=== PATIENT | male | born 1955 ===

== ENCOUNTER 2017-03-07 17:26 | Emergency (ER) | payer MEDICAID ==
[2017-03-07] MEDS ORDERED: Lidocaine 1% Inj (20ml) INFIL ONE (18:54)
[2017-03-07] MEDS ORDERED: Bacitracin 500 Units/gm Oint Foilpak UD TOP ONE (18:55)
--- NOTE | 2017-03-07 19:34 | C.PDOC ---
History Of Present Illness 61 y/o male presents to the ED with complaints of lacerations to left fingers and right forearm just prior to arrival. Pt states was using circular saw to cut wood , lost control and sustained cuts to left thumb, 2nd, 3rd fingers. Pt also reports shallow laceration to anterior forearm caused by wood piece. Denies weakness, numbness or any other complaints. Time Seen by Provider: 03/07/17 18:51 Chief Complaint (Nursing): Abnormal Skin Integrity History Per: Patient History/Exam Limitations: no limitations Onset/Duration Of Symptoms: Hrs Current Symptoms Are (Timing): Still Present Location Of Injury: Left: Hand Severity: Mild Recent travel outside of the [place]: No Past Medical History Reviewed: Historical Data, Nursing Documentation, Vital Signs Vital Signs: Last Vital Signs Temp 98.2 F 03/07/17 20:52 Pulse 89 03/07/17 20:52 Resp 17 03/07/17 20:52 BP 145/82 03/07/17 20:52 Pulse Ox 98 03/07/17 23:00 Family History: States: Unknown Family Hx - Social History Hx Alcohol Use: Yes Hx Substance Use: No - Immunization History Hx Tetanus Toxoid Vaccination: No Hx Influenza Vaccination: No Hx Pneumococcal Vaccination: No Review Of Systems Skin: Positive for: Other (various lacerations to left forearm and fingers) Neurological: Negative for: Weakness, Numbness Physical Exam - Physical Exam Appears: Non-toxic, No Acute Distress Skin: Warm, Dry, Other (Left thumb with 3 cm laceration to lateral side and jagged abrasion to palmar side; irregular/jagged shallow abrasions to thumb, 2- 3 fingers, 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; one 6 cm shallow abrasions to right anterior forearm) Head: Atraumatic, Normacephalic Extremity: Normal ROM, Capillary Refill (<2 seconds) Pulses: Left Radial: Normal, Right Radial: Normal Neurological/Psych: Oriented x3, Normal Speech, Normal Motor, Normal Sensation ED Course And Treatment O2 Sat by Pulse Oximetry: 98 (room air) Pulse Ox Interpretation: Normal Laceration - Laceration Repair No standard instances Wound Length (In cm): 3 Description Of Wound: Irregular Anesthesia: Lidocaine 1% Wound Examination: Irrigated With Saline, No FB With Wound Exploration, No Tendon Injury With Wound Exploration Wound Closure: Suture (6) Wound Complexity: Simple Disposition Counseled Patient/Family Regarding: Studies Performed, Diagnosis, Need For Followup, Rx Given - Disposition Referrals: Kaleb Ramesh MD [Staff Provider] - Disposition: HOME/ ROUTINE Disposition Time: 20:41 Condition: STABLE Additional Instructions: Keep wounds clean ad dry. Change dressing daily- if any sign of infection, then come to ER such as redness. swelling. fever. discharge. Tylenol or Motrin for pain. Apply antibiotic ointment to wounds two times a day. Suture removal in 10 days. Prescriptions: Bacitracin OINT 1 applic TP BID #1 tube Cephalexin [cephalexin] 500 mg PO Q6 #20 cap Instructions: Care For Your Stitches (ED), Laceration (ED), Laceration Without Closure (ED) Forms: General Discharge Instructions - Clinical Impression Clinical Impression: Laceration of left thumb without complication, Multiple abrasions - PA / MEDICAL ADVISOR / Resident Statement MD/DO has reviewed & agrees with the documentation as recorded. - Scribe Statement The provider has reviewed the documentation as recorded by the Scribjayson Garcia All medical record entries made by the Elizabethibjayson were at my direction and personally dictated by me. I have reviewed the chart and agree that the record accurately reflects my personal performance of the history, physical exam, medical decision making, and the department course for this patient. I have also personally directed, reviewed, and agree with the discharge instructions and disposition.
[2017-03-07] MEDS ORDERED: Lidocaine 1% Inj (20ml) ONE (19:49)
[2017-03-07] MEDS ORDERED: Bacitracin 500 Units/gm Oint Foilpak UD ONE (19:49)
[2017-03-07 20:54] VITALS: BP 145/82; PULSE 89; RESP 17; TEMP 98.2
[2017-03-07 22:45] VITALS: O2SAT 98
== END 2017-03-07 20:54 | disposition home or self-care (01) ==
LOC: C.ER 17:26
DX: S61.012A Laceration without foreign body of left thumb without damage to nail, initial encounter (principal); S60.411A Abrasion of left index finger, initial encounter; S60.413A Abrasion of left middle finger, initial encounter; W29.3XXA Contact with powered garden and outdoor hand tools and machinery, initial encounter; Y93.89 Activity, other specified; Y92.89 Other specified places as the place of occurrence of the external cause

== ENCOUNTER 2017-09-13 13:05 | Emergency (ER) | payer MEDICAID ==
[2017-09-13 14:00] VITALS: PULSE 78; RESP 18; O2SAT 99
[2017-09-13] MEDS ORDERED: Lidocaine 5% Patch TD STA (15:15)
--- NOTE | 2017-09-13 15:18 | C.PDOC ---
History Of Present Illness SP TRIP AND FALL THIS MORNING CO LBP. B/L LB LOCALIZED WORSE W MOVEMENT. DENIES HO CHRONIC BACK PAIN. DENIES OTHER ASSOC SX, INJURY EXAM NONTOXIC BACK +B/L SPASM W LOCAL TEND NO SPINAL TEND ATRAUM SKIN INTACT NEURO INTACT Time Seen by Provider: 09/13/17 14:54 Chief Complaint (Nursing): Lower Extremity Problem/Injury History Per: Patient History/Exam Limitations: no limitations Onset/Duration Of Symptoms: Sudden Onset (in the morning) Current Symptoms Are (Timing): Still Present Past Medical History Reviewed: Historical Data, Nursing Documentation, Vital Signs Vital Signs: Last Vital Signs Temp 98.1 F 09/13/17 15:24 Pulse 78 09/13/17 15:24 Resp 18 09/13/17 15:24 BP 114/73 09/13/17 15:24 Pulse Ox 99 09/13/17 15:59 - Medical History PMH: Hyperlipidemia Family History: States: No Known Family Hx - Social History Hx Alcohol Use: Yes Hx Substance Use: No - Immunization History Hx Tetanus Toxoid Vaccination: No Hx Influenza Vaccination: No Hx Pneumococcal Vaccination: No Review Of Systems Except As Marked, All Systems Reviewed And Found Negative. Musculoskeletal: Positive for: Back Pain (lower back pain). Negative for: Leg Pain Neurological: Negative for: Weakness, Numbness Physical Exam - Physical Exam Appears: Non-toxic, No Acute Distress Skin: Warm, Dry, No Rash Head: Atraumatic, Normacephalic Oral Mucosa: Moist Neck: Normal, Normal ROM, Supple Back: Muscle Spasm (bilateral spasm with local tenderness), No Paraspinal Tenderness Extremity: Normal ROM, No Swelling Neurological/Psych: Oriented x3, Normal Speech, Normal Motor ED Course And Treatment O2 Sat by Pulse Oximetry: 99 (RA) Pulse Ox Interpretation: Normal - Other Rad X-Ray - L Spine X-Ray: Interpreted by Me, Viewed By Me Interpretation: NEG Medical Decision Making Medical Decision Making: PLAN: * X-Ray - L Spine * Lidoderm TD * Tylenol PO * Flexeril PO * Toradol IM Disposition Counseled Patient/Family Regarding: Studies Performed, Diagnosis, Need For Followup, Rx Given - Disposition Referrals: YOUR,PMD [Other] Disposition: HOME/ ROUTINE Disposition Time: 15:56 Condition: IMPROVED Additional Instructions: APPLY PATCH TO AFFECTED AREA. MAX 3 PATCHES AT A TIME. REMOVE PATCH 12 HOURS AFTER INITIAL APPLICATION. ALTERNATE 12 HOURS ON, 12 HOURS OFF. Prescriptions: Acetaminophen [Tylenol Extra Strength] 2 tab PO Q6 #30 tablet Cyclobenzaprine [Flexeril] 10 mg PO TID #15 tab Ibuprofen [Motrin] 600 mg PO Q6 #30 tab Lidocaine 5% [Lidoderm] 1 ea TD PRN PRN #10 patch PRN Reason: Pain, Moderate (4-7) Instructions: Contusion in Adults (ED), Back Pain (ED) Forms: [facility] (Sami) - Clinical Impression Clinical Impression: Back contusion, Back strain - Scribe Statement The provider has reviewed the documentation as recorded by the Elizabethibjayson Moore Provider Attestation: All medical record entries made by the Elizabethibe were at my direction and personally dictated by me. I have reviewed the chart and agree that the record accurately reflects my personal performance of the history, physical exam, medical decision making, and the department course for this patient. I have also personally directed, reviewed, and agree with the discharge instructions and disposition.
[2017-09-13 15:25] VITALS: BP 114/73; TEMP 98.1
[2017-09-13] MEDS ORDERED: Lidocaine 5% Patch TD ONE (15:25)
--- NOTE | 2017-09-13 15:58 | RAD ---
PROCEDURE: Radiographs of the Lumbar Spine. HISTORY: TRAUMA COMPARISON: None available. FINDINGS: BONES: Alignment appears satisfactory. No acute displaced fracture identified. Degenerative changes including prominent osteophytes noted at level L1-L2 and L4. Facet hypertrophy. DISC SPACES: Unremarkable. OTHER FINDINGS: Atherosclerotic calcifications of the aorta. IMPRESSION: Degenerative changes including prominent osteophytes noted at level L1-L2 and L4. Facet hypertrophy.
== END 2017-09-13 16:25 | disposition home or self-care (01) ==
LOC: C.ER 13:05
DX: S30.0XXA Contusion of lower back and pelvis, initial encounter (principal); S39.012A Strain of muscle, fascia and tendon of lower back, initial encounter; W01.0XXA Fall on same level from slipping, tripping and stumbling without subsequent striking against object, initial encounter
CPT/HCPCS: 72100; 96372; 99284; J1885